=== PATIENT | male | born 1940 | race Caucasian/White ===

== ENCOUNTER → 2017-12-29 | Outpatient (CLI) | payer MEDICARE ==
[~2017-12-29] MED LIST: ASP325TEC PO; COMBIVENT RESPIM4 GM IH; CYCLOBENZAPRINE10 MG PO; LIPITOR20 MG PO; LORAZEPAM INJ 2 MG/ML VIAL ONE; LORAZEPAM PO; LOSARTAN POTASS25 MG PO; MELOXICAM7.5 MG; METFORMIN HCL500 MG; MONTELUKAST SOD10 MG PO; NASONEX17 GM INH; NITROGLYCERIN0.4 MG SL; NITROSTAT0.4 MG SL; NORCO 7.5-3251 EACH PO; PANTOPRAZOLE SO40 MG PO; PLAVIX75 MG PO; PRINIVIL10 MG PO; RANITIDINE; SERTRALINE HCL50 MG PO; TOPROL XL25 MG PO; TYLENOL WITH C1 EACH PO; VANOS60 GM; [UNRECOGNIZED DRUG - REMARK] PO; albuteral inhaler
--- NOTE | 2017-12-29 23:21 | Diagnostic Imaging Report ---
History: Low back pain radiating along left lower extremity associated with tingling and numbness. Comparison studies: None Technique: Sagittal , coronal and axial T2 , sagittal T1 and IR, axial PD and T2 FS. Intravenous contrast: None Findings: Suboptimal evaluation due to motion artifacts particularly in the axial set of images. Number of lumbar vertebral bodies: 5. Alignment: Normal lordosis. No scoliosis. Soft tissues: No T2 hyperintense inflammatory changes. Paraspinal muscles: No signal abnormalities. Well-preserved. No atrophic changes Lower thoracic cord: Normal in signal and morphology. The tip of the conus is at L1 . Cauda equina: No masses. No arachnoiditis. Vertebrae: No compression fractures, infection or neoplasm. Degenerative changes: L1-L2: Mild degenerative disc disease with decreased T2 signal. Disc bulge in combination with thickened ligamentum flavum and bilateral facet arthrosis results in mild canal stenosis. No significant foraminal stenosis. L2-L3: Mild degenerative disc disease. Disc bulge in combination with thickened ligamentum flavum and bilateral facet arthrosis results in moderate canal stenosis. Moderate right and mild left foraminal stenosis. L3-L4: Mild degenerative disc disease. Disc bulge in combination with thickened ligamentum flavum and bilateral facet arthrosis results in mild canal stenosis. Mild bilateral foraminal stenosis. L4-L5: Mild degenerative disc disease. Disc bulge in combination with thickened ligamentum flavum and bilateral facet arthrosis results in severe canal stenosis with crowding of cauda equina nerve roots. Mild right and moderate left foraminal stenosis. L5-S1: Mild to moderate degenerative disc disease with decreased T2 signal and decreased intervertebral disc space. Disc bulge with superimposed 6 mm central disc extrusion with 4 mm superior migration in combination with thickened ligamentum flavum and bilateral facet arthrosis results in severe canal stenosis. There is crowding of cauda equina nerve roots. Bilateral severe foraminal stenosis. Possible contact of bilateral L5 and left S1 nerve root by disc material. Visualized portion of bilateral sacroiliac joints: Moderate to severe right and mild left degenerative changes. IMPRESSION: Suboptimal evaluation due to motion artifacts, despite the limitation 1. Multilevel lumbar spondylosis results in severe canal stenosis at L4-L5 and L5-S1; moderate canal stenosis at L2-L3 and mild canal stenosis at L1-L2 and L3-L4. 2. Multilevel foraminal stenosis, particularly moderate right and mild left at L2-L3, mild bilateral at L3-L4, mild right and moderate left at L4-L5 and bilateral severe at L5-S1. 3. Multilevel degenerative disc disease and facet arthrosis as detailed above. Signed by: Dr. Laure Art M.D. on 12/29/2017 11:17 PM
== END ==
LOC: MRI 14:01
PROVIDERS: ATTEND Family Medicine
DX: R20.2 Paresthesia of skin (principal)
CPT/HCPCS: 72148; J2060

== ENCOUNTER → 2018-04-24 | Outpatient (CLI) | payer MEDICARE ==
[~2018-04-24] MED LIST changes: -LORAZEPAM INJ 2 MG/ML VIAL ONE
--- NOTE | 2018-04-24 14:09 | Diagnostic Imaging Report ---
EXAM: CT Chest without contrast COMPARISON: None TECHNIQUE: Chest was scanned utilizing a multidetector helical scanner from the lung apex through the level of the adrenal glands without administration of IV contrast. Coronal and sagittal reformations were obtained. Routine protocol was performed. RADIATION DOSE: Total DLP: 336.3 mGy*cm Estimated effective dose: (DLP x 0.014 x size factor) mSv COMPLICATIONS: None FINDINGS: LINES/ TUBES: None. LUNGS AND AIRWAYS: The central airways are patent. Bilateral pulmonary nodules are unchanged from prior CT. Examples include a 5 mm solid pulmonary nodule in the right upper lobe on series 124, image 35; a 4 mm right upper lobe pulmonary nodule on image 37; a 4 mm right upper lobe pulmonary nodule on image 45; a 4 mm right upper lobe pulmonary nodule on image 66; 2 mm right major fissural nodules on image 58; 3 mm subpleural nodule in the right lower lobe on image 94; a 5 mm subpleural left lower lobe nodule on image 86; a 6 mm solid pulmonary nodule in the left lower lobe on image 101; and multiple other tiny pulmonary nodules, including along the fissures. No evidence of new or enlarging pulmonary nodule. PLEURA: No evidence of pleural effusion or pneumothorax. Bilateral calcified pleural plaques, left greater than right are again noted. HEART AND MEDIASTINUM: The thyroid gland is normal. No mediastinal, hilar or axillary lymphadenopathy. The heart is normal in size. There is no pericardial effusion. Focal calcified pericardium. Atherosclerotic calcification of the coronary arteries. Mildly enlarged main pulmonary artery measuring up to 3.2 cm, suggestive of pulmonary arterial hypertension. UPPER ABDOMEN: Limited non-contrast views of the upper abdomen show no abnormality within the visualized spleen, adrenals, or kidneys. Fatty liver. BONES: No acute bony findings. Degenerative changes of visualized spine. SOFT TISSUES: Unremarkable. IMPRESSION: Unchanged appearance of bilateral solid pulmonary nodules measuring up to 6 mm. Given stability since 05/2016, the nodules are likely benign and may be infectious or inflammatory. Calcified pleural plaques, consistent with history of asbestos exposure. Signed by: Dr. Jeffrey Partida MD on 04/24/2018 2:06 PM
== END ==
LOC: CT 10:30
PROVIDERS: ATTEND Internal Medicine
DX: R91.8 Other nonspecific abnormal finding of lung field (principal)
CPT/HCPCS: 71250

== ENCOUNTER → 2018-04-28 | Day surgery (SDC) | payer MEDICARE ==
[~2018-04-28] MED LIST changes: +LIDOCAINE 1% W/EPINEPHRINE 20 ML VIAL ONE
--- NOTE | 2018-04-28 16:07 | Operative Report ---
DATE OF PROCEDURE: April 28, 2018 INDICATIONS: Palpitations with atrial fibrillation. PROCEDURES PERFORMED: Insertable loop recorder. COMPLICATIONS: None. BLOOD LOSS: 1 mL. RECOMMENDATIONS: Remote monitoring. Left anterior chest wall was anesthetized using subcutaneous lidocaine. A Shaka LINQ, serial number [id number], was inserted without complications. Skin approximated using Dermabond. Patient discharged home same day. Job#: [id number] EV
--- OUTSIDE RECORDS SUMMARY | 2018-05-01 12:04 | XMS REPORT ---
Author Author [facility] Address Unknown Phone Unavailable Care Team Providers Care [employer] Professor Name Role Phone JESSI HILL Unavailable Unavailable DES GREENBERG Unavailable Unavailable Problems This patient has no known problems. Allergies, Adverse Reactions, Alerts This patient has no known allergies or adverse reactions. Medications This patient has no known medications. Results Test Description Test Time Test Comments Text Results Atomic Results Result Comments CT CHEST WO 2018-04-24 13:40:00 [facility] [address] [address] Patient Name: AILEEN GAMA MR #: [id number] : 1940 Age/Sex: 77/M Req #: [id number] Adm Physician: Ordered by: JESSI HILL MD Report #: [id number] Location: CT Room/Bed: Procedure: [id number] CT/CT CHEST WO Exam Date: 04/24/18 Exam Time: 1110 REPORT STATUS: Signed EXAM: CT Chest without contrast COMPARISON: None TECH NIQUE: Chest was scanned utilizing a multidetector helical scanner from the lung apex through the level of the adrenal glands without administration of IV contrast. Coronal and sagittal reformations were obtained. Routine protocol was performed. RADIATION DOSE: Total DLP: 336.3 mGy*cm Estimated effective dose: (DLP x 0.014 x size factor) mSv COMPLICATIONS: None FINDINGS: LINES/ TUBES: None. LUNGS AND AIRWAYS: The central airways are patent. Bilateral pulmonary nodules are unchanged from prior CT. Examples include a 5 mm solid pulmonary nodule in the right upper lobe on series 124, image 35; a 4 mm right upper lobe pulmonary nodule on image 37; a 4 mm right upper lobe pulmonary nodule on image 45; a 4 mm right upper lobe pulmonary nodule on image 66; 2 mm right major fissural nodules on image 58; 3 mm subpleural nodule in the right lower lobe on image 94; a 5 mm subpleural left lower lobe nodule on image 86; a 6 mm solid pulmonary nodule in the left lower lobe on image 101; and multiple other tiny pulmonary nodules, including along the fissures. No evidence of new or enlarging pulmonary nodule. PLEURA: No evidence of pleural effusion or pneumothorax. Bilateral calcified pleural plaques, left greater than right are again noted. HEART AND MEDIASTINUM: The thyroid gland is normal. No mediastinal, hilar or axillary lymphadenopathy. The heart is normal in size. There is no pericardial effusion. Focal calcified pericardium. Atherosclerotic calcification of the coronary arteries. Mildly enlarged main pulmonary artery measuring up to 3.2 cm, suggestive of pulmonary arterial hypertension. UPPER ABDOMEN: Limited non-contrast views of the upper abdomen show no abnormality within the visualized spleen, adrenals, or kidneys. Fatty liver. BONES: No acute bony findings. Degenerative changes of visualized spine. SOFT TISSUES: Unremarkable. IMPRESSION: Unchanged appearance of murray ateral solid pulmonary nodules measuring up to 6 mm. Given stability since 05/2016, the nodules are likely benign and may be infectious or inflammatory. Calcified pleural plaques, consistent with history of asbestos exposure. Signed by: Dr. Liv Angulo MD on 04/24/2018 2:06 PM Dictated By: LIV ANGULO MD 140 Transcribed By: DIANNE on 04/24/18 1406 COPY TO: JESSI HILL MD MRI SPINE LUMBAR WO 2017-12-29 22:59:00 [address] [place] [address] Patient Name: AILEEN GAMA MR #: [id number] : 1940 Age/Sex: 77/M Req #: [id number] Adm Physician: Ordered by: DES GREENBERG DO Report #: [id number] Location: MRI Room/Bed: Procedure: [id number] MRI/MRI SPINE LUMBAR WO Exam Date: Exam Time: REPORT STATUS: Signed History: Low back pain radiating along left lower extremity associated with tingling and numbness. Comparison studies: None Technique: Sagittal , coronal and axial T2 , sagittal T1 and IR, axial PD and T2 FS. Intravenous contrast: None Findings: Suboptimal evaluation due to motion artifacts particularly in the axial set of images. Number of lumbar vertebral bodies: 5. Alignment: Normal lordosis. No scoliosis. Soft tissues: No T2 hyperintense inflammatory changes. Paraspinal muscles: No signal abnormalities. Well-preserved. No atrophic changes Lower thoracic cord: Normal in signal and morphology. The tip of the conus is at L1 . Cauda equina: No masses. No arachnoiditis. Vertebrae: No compression fractures, infection or neoplasm. Degenerative changes: L1-L2: Mild degenerative disc disease with decreased T2 signal. Disc bulge in combination with thickened ligamentum flavum and bilateral facet arthrosis results in mild canal stenosis. No significant foraminal stenosis. L2-L3: Mild degenerative disc disease. Disc bulge in combination with thickened ligamentum flavum and bilateral facet arthrosis results in moderate canal stenosis. Moderate right and mild left foraminal stenosis. L3-L4: Mild degenerative disc disease. Disc bulge in combination with thickened ligamentum flavum and bilateral facet arthrosis results in mild canal stenosis. Mild bilateral foraminal stenosis. L4-L5: Mild degenerative disc disease. Disc bulge in combination with thickened ligamentum flavum and bilateral facet arthrosis results in severe canal stenosis with crowding of cauda equina nerve roots. Mild right and moderate left foraminal stenosis. L5-S1: Mild to moderate degenerative disc disease with decreased T2 signal and decreased intervert ebral disc space. Disc bulge with superimposed 6 mm central disc extrusion with 4 mm superior migration in combination with thickened ligamentum flavum and bilateral facet arthrosis results in severe canal stenosis. There is crowding of cauda equina nerve roots. Bilateral severe foraminal stenosis. Possible contact of bilateral L5 and left S1 nerve root by disc material. Visualized portion of bilateral sacroiliac joints: Moderate to severe right and mild left degenerative changes. IMPRESSION: Suboptimal evaluation due to motion artifacts, despite the limitation 1. Multilevel lumbar spondylosis results in severe canal stenosis at L4-L5 and L5-S1; moderate canal stenosis at L2-L3 and mild canal stenosis at L1-L2 and L3-L4. 2. Multilevel foraminal stenosis, particularly moderate right and mild left at L2-L3, mild bilateral at L3-L4, mild right and moderate left at L4-L5 and bilateral severe at L5-S1. 3. Multilevel degenerative disc disease and fa cet arthrosis as detailed above. Signed by: Dr. Laure Art M.D. on 12/29/2017 11:17 PM Dictated By: LAURE ART MD 16 Transcribed By: DIANNE on 12/29/172316 COPY TO: DES GREENBERG DO CT CHEST WO [address] [place] [address] Patient Name: AILEEN GAMA MR #: [id number] : 1940 Age/Sex: 76/M Req #: [id number] Adm Physician: Ordered by: JESSI HILL MD Report #: [id number] Location: CT Room/Bed: Procedure: [id number] CT/CT CHEST WO Exam Date: 03/09/17 Exam Time: 0835 REPORT STATUS: Signed PROCEDURE: CT CHEST WITHOUT CONTRAST CT scan of the chest WITHOUT intravenous contrast, using standard protocol. TECHNIQUE: The chest was scanned utilizing a multidetector helical scanner from the apex to the level of the adrenal glands. No IV contrast was administered because of referring physician request. Coronal and sagittal multiplanar reformations were obtained. COMPARISON: 06/14/2016. INDICATIONS: MULTIPLE LUNG NODULES FINDINGS: Lines/tubes: None. Lungs and Airways: Airways are unremarkable. No consolidation or bronchiectasis. Nodules: 5 mm right upper lobe (series 3, image 27), unchanged 4 mm right upper lobe (series 3, image 30), unchanged 4 mm right upper lobe (series 3, image 36), unchanged 3 mm juxtapleural right lower lobe (series 3 image 61), unchanged 4 mm left upper lobe paramediastinal nodule (series 3, image 48), unchanged 5 mm left lower lobe (series 3, image 75), unchanged 4 mm right lower lobe juxta diaphragmatic (series 3, image 80), unchanged Pleura: Bilateral calcified pleural plaques, unchanged.. Heart and mediastinum: Visualized portions of the thyroid gland appear normal. Atherosclerotic calcification of the coronary arteries and aortic arch. No ectasia or aneurysmal dilatation of the thoracic aorta. Pulmonary outflow tract is of normal caliber. No pericardial effusion. Unchanged left posterior pericardial calcification. Patulous esophagus with concentric wall thickening is also unchanged. No axillary, hilar, or mediastinal lymphadenopathy. Soft tissues: Normal. Abdomen: Visualized portions of the liver, spleen, pancreas, and adrenal glands are unremarkable. Bones: Degenerative disc changes of the partially visualized lower cervical and thoracic spine. No osseous destructive lesion. IMPRESSION: Stable bilateral pulmonary nodules measuring up to 5 mm, likely sequela of prior infectious or inflammatory disease. A followup CT scan of the chest without contrast may be obtained in one year if the patient is at high risk for malignancy per Fleischner Society 2017 guidelines. 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 Atherosclerotic vascular disease. Concentric esophageal wall thickening is unchanged relative to 06/14/2016. Upper endoscopy may be of benefit for further evaluation. Dictated by: Alexa Ferrari M.D. on 03/10/2017 at 8:00 Electronically approved by: Alexa Ferrari M.D. on 03/10/2017 at 8:00 Dictated By: ALEXA FERRARI MD 9 Transcribed By: BAYRON on 03/10/17799 COPY TO: JESSI HILL MD
== END | disposition home or self-care (01) ==
LOC: CATH LAB 13:18
PROVIDERS: ATTEND Internal Medicine Interventional Cardiology
DX: I48.0 Paroxysmal atrial fibrillation (principal); I25.10 Atherosclerotic heart disease of native coronary artery without angina pectoris; I10 Essential (primary) hypertension; E78.5 Hyperlipidemia, unspecified; G47.33 Obstructive sleep apnea (adult) (pediatric); Z88.2 Allergy status to sulfonamides; Z79.02 Long term (current) use of antithrombotics/antiplatelets; Z79.82 Long term (current) use of aspirin; Z79.84 Long term (current) use of oral hypoglycemic drugs; Z68.37 Body mass index [BMI] 37.0-37.9, adult
CPT/HCPCS: 33282; C1764

== ENCOUNTER → 2020-11-18 | Outpatient (CLI) | payer MEDICARE ==
[~2020-11-18] MED LIST changes: -LIDOCAINE 1% W/EPINEPHRINE 20 ML VIAL ONE; +LORAZEPAM INJ 2 MG/ML VIAL ONE
== END ==
LOC: MRI 12:09
PROVIDERS: ATTEND Family Medicine
DX: M54.12 Radiculopathy, cervical region (principal)
CPT/HCPCS: 72141; J2060

== ENCOUNTER → 2023-12-27 | Day surgery (SDC) | payer MEDICARE ==
[2023-12-21 10:04] LABS: BASOPHILS # (AUTO) 0.1 (0.0-0.1); BASOPHILS % 0.8 % (0.0-1.0); EOSINOPHILS # (AUTO) 0.3 (0.0-0.4); EOSINOPHILS % 2.9 % (0.0-6.0); HEMATOCRIT 45.2 % (38.2-49.6); HEMOGLOBIN 14.4 g/dL (14.0-18.0); LYMPHOCYTES # (AUTO) 1.7 (1.0-3.2); LYMPHOCYTES % 16.9 % (18.0-39.1); MEAN CORPUSCULAR HEMOGLOBIN 29.8 pg (28-32); MEAN CORPUSCULAR HGB CONC 31.9 g/dL (31-35); MEAN CORPUSCULAR VOLUME 93.4 fL (81-99); MONOCYTES # (AUTO) 0.8 (0.2-0.8); MONOCYTES % 8.1 % (4.4-11.3); NEUTROPHILS % 69.5 % (38.7-80.0); PLATELET COUNT 315 x10e3/uL (140-360); RED BLOOD COUNT 4.84 x10e6/uL (4.3-5.7); RED CELL DISTRIBUTION WIDTH 13.4 % (11.7-14.4); WHITE BLOOD COUNT 10.12 x10e3/uL (4.8-10.8)
[~2023-12-27] MED LIST changes: +FLOMAX0.4 MG PO; +FLONASE ALLERG9.9 ML INH; +FUROSEMIDE40 MG PO; +ISORDIL40 MG PO; +LIDOCAINE HCL 2% LOCAL INJ 5 ML SDV VIAL INJ ONE; -LORAZEPAM INJ 2 MG/ML VIAL ONE; +METOCLOPRAMIDE HCL 10 MG/2ML VIAL ONE; +PRESERVISION A1 EAC3 PO; +PROPOFOL IV EMULSION 10 MG/ML 20 ML VIAL ONE
[2023-12-27] MEDS: LACTATED RINGER'S 1,000 ML ONE (10:55)
[2023-12-27 13:15] VITALS: BP 123/70; PULSE 66; RESP 17; O2SAT 97
== END | disposition home or self-care (01) ==
LOC: ENDO 10:22
PROVIDERS: ATTEND Internal Medicine Gastroenterology
DX: K22.2 Esophageal obstruction (principal); K31.7 Polyp of stomach and duodenum; K29.70 Gastritis, unspecified, without bleeding; K31.89 Other diseases of stomach and duodenum; K31.A0 Gastric intestinal metaplasia, unspecified; K21.9 Gastro-esophageal reflux disease without esophagitis; R09.A2 Foreign body sensation, throat; K59.09 Other constipation; Z71.3 Dietary counseling and surveillance; G47.33 Obstructive sleep apnea (adult) (pediatric); E11.9 Type 2 diabetes mellitus without complications; I25.10 Atherosclerotic heart disease of native coronary artery without angina pectoris; I25.2 Old myocardial infarction; I10 Essential (primary) hypertension; Z71.89 Other specified counseling; E78.5 Hyperlipidemia, unspecified; I49.9 Cardiac arrhythmia, unspecified; J45.909 Unspecified asthma, uncomplicated; L40.50 Arthropathic psoriasis, unspecified; N40.0 Benign prostatic hyperplasia without lower urinary tract symptoms; Z88.2 Allergy status to sulfonamides; Z01.812 Encounter for preprocedural laboratory examination; Z79.02 Long term (current) use of antithrombotics/antiplatelets; Z79.84 Long term (current) use of oral hypoglycemic drugs; Z79.899 Other long term (current) drug therapy; Z95.5 Presence of coronary angioplasty implant and graft; Z87.891 Personal history of nicotine dependence; Z68.32 Body mass index [BMI] 32.0-32.9, adult
CPT/HCPCS: 36415; 43239; 43251; 43450; 85025; 88305; 88313; 88342; 93005; C9113; J2001; J2704; J2765; J7121; J2470

== ENCOUNTER → 2024-04-18 | Outpatient (REF) | payer MEDICARE ==
[~2024-04-18] MED LIST changes: -LIDOCAINE HCL 2% LOCAL INJ 5 ML SDV VIAL INJ ONE; -METOCLOPRAMIDE HCL 10 MG/2ML VIAL ONE; -PROPOFOL IV EMULSION 10 MG/ML 20 ML VIAL ONE
== END ==
LOC: CT 12:30
PROVIDERS: ATTEND Internal Medicine
DX: J45.40 Moderate persistent asthma, uncomplicated (principal)
CPT/HCPCS: 71250